=== PATIENT | male | born 1940 | race African-American/Black ===

== ENCOUNTER 2022-07-11 17:29 | Emergency (ER) | payer BC ==
[~2022-07-11] VITALS: Ht 182.9 cm; Wt 81.6 kg
[2022-07-11] MEDS ORDERED: ONDANSETRON 4 MG/2 ML VIAL IV ONE (18:00)
[2022-07-11] MEDS ORDERED: MORPHINE SULFATE 4 MG/1 ML DISP.SYRIN IV ONE (18:00)
[2022-07-11] MEDS ORDERED: ONDANSETRON 4 MG/2 ML VIAL ONE (18:02)
[2022-07-11] MEDS ORDERED: MORPHINE SULFATE 4 MG/1 ML DISP.SYRIN ONE (18:02)
[2022-07-11] MEDS ORDERED: ALPR0.255 PO (18:20)
[2022-07-11] MEDS ORDERED: SIMV10TA98 PO (18:20)
[2022-07-11] MEDS ORDERED: SITA50TA PO (18:20)
[2022-07-11] MEDS ORDERED: COLC0.6C3 PO (18:20)
[2022-07-11] MEDS ORDERED: TEMA30CA PO (18:20)
[2022-07-11] MEDS ORDERED: ALLO100T PO (18:20)
[2022-07-11] MEDS ORDERED: AMLO-212 PO (18:20)
[2022-07-11] MEDS ORDERED: NATE120T6 PO (18:20)
[2022-07-11] MEDS ORDERED: TRAM50TA2 PO (18:20)
[2022-07-11] MEDS ORDERED: APIX2.5T PO (18:20)
[2022-07-11] MEDS ORDERED: AZEL23SP BNOSTRILS (18:20)
[2022-07-11] MEDS ORDERED: HYDR-3976 PO (18:20)
[2022-07-11] MEDS ORDERED: CLON0.1T PO (18:20)
[2022-07-11] MEDS ORDERED: ALBU8.5H8 INH (18:20)
[2022-07-11] MEDS ORDERED: METO200T49 PO (18:20)
[2022-07-11] MEDS ORDERED: LOSA100T31 PO (18:20)
[2022-07-11] MEDS ORDERED: TAMS-3 PO (18:20)
[2022-07-11] MEDS ORDERED: FAMO20TA8 PO (18:20)
[2022-07-11] MEDS ORDERED: METF-440 PO (18:20)
--- NOTE | 2022-07-11 19:00 | NUR ---
Patient sitting in bed. NAD noted. at bedside.
[2022-07-11] MEDS ORDERED: KETOROLAC TROMETHAMINE 15 MG INJ IVP ONE (19:45)
[2022-07-11] MEDS ORDERED: KETOROLAC TROMETHAMINE 15 MG INJ ONE (19:46)
[2022-07-11] MEDS ORDERED: CYCL5TAB PO (20:57)
--- NOTE | 2022-07-11 21:34 | NUR ---
Patient discharged to home in stable condition. A/O x 3. NAD noted. All belongings with patient and family. Written and verbal after care instructions given. Patient verbalizes understanding of instructions. Stressed follow up or return to ER for worsening s/s.
[2022-07-11 21:36] VITALS: BP 150/91
== END 2022-07-11 21:36 | disposition home or self-care (01) ==
LOC: ER 17:29
DX: G89.29 Other chronic pain (principal); M54.41 Lumbago with sciatica, right side; J44.9 Chronic obstructive pulmonary disease, unspecified; I48.91 Unspecified atrial fibrillation; Z95.0 Presence of cardiac pacemaker; I11.0 Hypertensive heart disease with heart failure; I50.9 Heart failure, unspecified; E78.5 Hyperlipidemia, unspecified; N40.0 Benign prostatic hyperplasia without lower urinary tract symptoms; E11.9 Type 2 diabetes mellitus without complications
CPT/HCPCS: 99284; 96374; 96375; 73502; J1885; J2405; J2270; A4663

== ENCOUNTER 2022-07-19 13:11 | Emergency (ER) | payer BC ==
[~2022-07-19] VITALS: Ht 182.9 cm; Wt 81.6 kg
[~2022-07-19 13:11] MED LIST: ALBU8.5H8 INH; ALLO100T PO; ALPR0.255 PO; AMLO-212 PO; APIX2.5T PO; AZEL23SP BNOSTRILS; CLON0.1T PO; COLC0.6C3 PO; CYCL5TAB PO; FAMO20TA8 PO; HYDR-3976 PO; LOSA100T31 PO; METF-440 PO; METO200T49 PO; NATE120T6 PO; SIMV10TA98 PO; SITA50TA PO; TAMS-3 PO; TEMA30CA PO; TRAM50TA2 PO
--- NOTE | 2022-07-19 13:20 | NUR ---
Dr Kraft at the bedside for MSE.
[2022-07-19] MEDS ORDERED: ONDANSETRON ODT 4 MG TAB.RAPDIS SL ONE (13:30)
[2022-07-19] MEDS ORDERED: MORPHINE SULFATE 4 MG/1 ML DISP.SYRIN IM ONE (13:30)
[2022-07-19] MEDS ORDERED: ONDANSETRON ODT 4 MG TAB.RAPDIS ONE (13:31)
[2022-07-19] MEDS ORDERED: MORPHINE SULFATE 4 MG/1 ML DISP.SYRIN ONE (13:32)
[2022-07-19] MEDS ORDERED: GABA-532 PO (14:03)
[2022-07-19] MEDS ORDERED: SITA50TA PO (14:03)
[2022-07-19] MEDS ORDERED: HYDROMORPHONE 1 MG/1 ML DISP.SYRIN ONE (14:51)
[2022-07-19] MEDS ORDERED: HYDROMORPHONE 1 MG/1 ML DISP.SYRIN IM ONE (15:00)
--- NOTE | 2022-07-19 15:12 | NUR ---
A COPY OD CD OF IMAGES, WILL BE GIVEN TO THE PATIENT/FAMILY
--- NOTE | 2022-07-19 15:13 | NUR ---
Provided Pt with copy of CD that includes imaging. Pt currently in stable condition. Safety measures in place. Will continue to monitor.
--- NOTE | 2022-07-19 16:00 | NUR ---
Patient discharged to home in stable condition. Written and verbal after care instructions given. Patient verbalizes understanding of instructions. Gave Patient copies of CT scan as well as CD of CT. Patient left via wheelchair and left via [employer] in stable condition. Stressed follow up or return to ER for worsening s/s.
[2022-07-19 16:01] VITALS: BP 172/82
== END 2022-07-19 16:02 | disposition home or self-care (01) ==
LOC: ER 13:11
DX: G89.29 Other chronic pain (principal); M54.42 Lumbago with sciatica, left side; I11.0 Hypertensive heart disease with heart failure; I50.9 Heart failure, unspecified; I48.91 Unspecified atrial fibrillation; E78.5 Hyperlipidemia, unspecified; E11.9 Type 2 diabetes mellitus without complications; J44.9 Chronic obstructive pulmonary disease, unspecified; F17.210 Nicotine dependence, cigarettes, uncomplicated; Z95.0 Presence of cardiac pacemaker; Z88.8 Allergy status to other drugs, medicaments and biological substances; Z79.84 Long term (current) use of oral hypoglycemic drugs; Z79.899 Other long term (current) drug therapy
CPT/HCPCS: 99285; 72131; 72192; 96372 ×2; J1170; J2270; A4663; Q0162

== ENCOUNTER 2023-01-12 16:43 | Inpatient (IN) | payer BC ==
[~2023-01-12] VITALS: Ht 180.3 cm; Wt 93.0 kg
[~2023-01-12 16:43] MED LIST changes: -ALBU8.5H8 INH; -ALPR0.255 PO; +GABA-532 PO
[2023-01-12 17:21] LABS: BASOPHILS % (AUTO) 0.8 % (0.0-2.0); EOSINOPHILS % (AUTO) 0.8 % (0.0-7.0); HEMATOCRIT 37.8 % (36.7-47.1); HEMOGLOBIN 12.4 g/dL (12.5-16.3); LYMPHOCYTES # (AUTO) 1.2 K/uL (0.8-4.8); LYMPHOCYTES % (AUTO) 20.4 % (20.5-51.5); MEAN CORPUSCULAR HGB CONC 33 g/dL (32.5-36.3); MEAN CORPUSCULAR VOLUME 88.4 fL (73.0-96.2); MONOCYTES # (AUTO) 0.6 K/uL (0.1-1.30); MONOCYTES % (AUTO) 10.3 % (0.0-11.0); NEUTROPHILS # (AUTO) 3.9 K/uL (1.8-8.9); NEUTROPHILS % (AUTO) 67.7 % (38.5-71.5); PLATELET COUNT (AUTO) 147 K/uL (152-348); RED BLOOD CELL COUNT(AUTO) 4.28 MIL/uL (4.06-5.63); RED CELL DISTRIBUTION WIDTH 14.2 % (12.1-16.2); WHITE BLOOD COUNT (AUTO) 5.7 K/uL (3.6-10.2)
[2023-01-12] MEDS ORDERED: INSU100V37 SQ (17:23)
[2023-01-12] MEDS ORDERED: FOLI0.8T23 PO (17:23)
[2023-01-12] MEDS ORDERED: HYDR100T27 PO (17:23)
[2023-01-12] MEDS ORDERED: OZEMPIC SQ (17:23)
[2023-01-12] MEDS ORDERED: FINA5TAB11 PO (17:23)
[2023-01-12] MEDS ORDERED: INSU100C4 SQ (17:23)
[2023-01-12] MEDS ORDERED: FURO-151 PO (17:23)
[2023-01-12 17:36] LABS: DIFFERENTIAL COMMENT 1
[2023-01-12 17:51] LABS: CALCIUM 9.9 mg/dL (8.5-10.1); CARBON DIOXIDE 30 mmol/L (21-32); CHLORIDE 99 mmol/L (98-107); GLUCOSE 149 mg/dL (74-106); SODIUM SERUM 138 mmol/L (136-145); UREA NITROGEN, BLOOD 23 mg/dL (7-18)
[2023-01-12 18:04] LABS: ALANINE AMINOTRANSFERASE 76 U/L (16-63); ALBUMIN 2.9 g/dL (3.4-5.0); ALKALINE PHOSPHATASE 97 U/L (50-136); ASPARTATE AMINOTRANSFERASE 27 U/L (15-37); BILIRUBIN,DIRECT 0.1 mg/dL (0.0-0.2); BILIRUBIN,TOTAL 0.4 mg/dL (0.2-1.0); NT-PRO BNP 859 pg/mL (0-125); TOTAL PROTEIN, SERUM 7.3 g/dL (6.4-8.2)
[2023-01-12] MEDS ORDERED: CYCLOBENZAPRINE HCL PO SCH (18:45)
[2023-01-12] MEDS ORDERED: TRAMADOL HCL 50 MG TABLET PO PRN (18:45)
[2023-01-12] MEDS ORDERED: FAMOTIDINE 20 MG TABLET PO SCH (18:45)
[2023-01-12] MEDS ORDERED: INSULIN REGULAR, HUMAN 300 UNITS/3 ML VIAL SQ PRN (19:00)
[2023-01-12] MEDS ORDERED: ONDANSETRON 4 MG/2 ML VIAL IV PRN (19:00)
[2023-01-12] MEDS ORDERED: ACETAMINOPHEN 325 MG TABLET PO PRN (19:00)
[2023-01-12] MEDS ORDERED: DEXTROSE 50% 50 ML DISP.SYRIN IV PRN (19:00)
[2023-01-12] MEDS ORDERED: MAGNESIUM HYDROXIDE 30 ML LIQUID UDC PO PRN (19:00)
[2023-01-12] MEDS ORDERED: REMEDY ESSENTIAL ZINC PASTE 113 GM TP PRN (19:00)
[2023-01-12] MEDS ORDERED: CLONIDINE HCL 0.1 MG TABLET ONE (19:36)
[2023-01-12] MEDS ORDERED: CLONIDINE HCL 0.1 MG TABLET PO ONE (19:45)
[2023-01-12] MEDS: FUROSEMIDE 40 MG/4 ML VIAL IV SCH (22:35)
[2023-01-12] MEDS: TAMSULOSIN HCL 0.4 MG CAP.SR.24H PO SCH (22:36)
[2023-01-12] MEDS: BLOOD SUGAR DIAGNOSTIC 1 EACH STRIP VI SCH (22:36)
[2023-01-12] MEDS ORDERED: TEMAZEPAM 15 MG CAPSULE PO PRN (22:45)
[2023-01-13] MEDS: hydrALAZINE HCL 20 MG/1 ML VIAL IV PRN ×2 (00:42→07:19)
[2023-01-13 00:45] VITALS: BP 171/72; TEMP 98; O2SAT 96
[2023-01-13 04:00] VITALS: BP 165/78; TEMP 98.8; O2SAT 98
[2023-01-13 06:33] LABS: BASOPHILS % (AUTO) 0.6 % (0.0-2.0); EOSINOPHILS # (AUTO) 0.1 K/uL (0.0-0.7); EOSINOPHILS % (AUTO) 1.5 % (0.0-7.0); HEMATOCRIT 35.9 % (36.7-47.1); HEMOGLOBIN 11.7 g/dL (12.5-16.3); LYMPHOCYTES # (AUTO) 1.1 K/uL (0.8-4.8); LYMPHOCYTES % (AUTO) 22.4 % (20.5-51.5); MEAN CORPUSCULAR HEMOGLOBIN 28.8 uug (23.8-33.4); MEAN CORPUSCULAR HGB CONC 33 g/dL (32.5-36.3); MEAN CORPUSCULAR VOLUME 88.2 fL (73.0-96.2); MONOCYTES # (AUTO) 0.6 K/uL (0.1-1.30); MONOCYTES % (AUTO) 11.9 % (0.0-11.0); NEUTROPHILS # (AUTO) 3.1 K/uL (1.8-8.9); NEUTROPHILS % (AUTO) 63.6 % (38.5-71.5); PLATELET COUNT (AUTO) 148 K/uL (152-348); RED BLOOD CELL COUNT(AUTO) 4.07 MIL/uL (4.06-5.63); WHITE BLOOD COUNT (AUTO) 4.9 K/uL (3.6-10.2)
[2023-01-13 06:49] LABS: DIFFERENTIAL COMMENT 1
[2023-01-13 06:52] LABS: CALCIUM 9.4 mg/dL (8.5-10.1); CARBON DIOXIDE 31 mmol/L (21-32); CHLORIDE 100 mmol/L (98-107); CREATININE 2.1 mg/dL (0.6-1.3); GLUCOSE 146 mg/dL (74-106); MAGNESIUM 1.4 mg/dL (1.8-2.4); PHOSPHOROUS 3.9 mg/dL (2.5-4.9); POTASSIUM 3.8 mmol/L (3.5-5.1); SODIUM SERUM 138 mmol/L (136-145); UREA NITROGEN, BLOOD 28 mg/dL (7-18)
[2023-01-13] MEDS: BLOOD SUGAR DIAGNOSTIC 1 EACH STRIP VI SCH ×4 (06:58→20:21)
[2023-01-13 08:03] VITALS: BP 149/71
[2023-01-13] MEDS: INSULIN REGULAR, HUMAN 300 UNIT/3 ML VIAL SQ PRN ×2 (08:23→11:59)
[2023-01-13] MEDS: APIXABAN 2.5 MG TABLET PO SCH ×2 (08:36→17:21)
[2023-01-13] MEDS: FINASTERIDE 5 MG TABLET PO SCH (08:36)
[2023-01-13] MEDS: FUROSEMIDE 40 MG/4 ML VIAL IV SCH (08:37)
[2023-01-13] MEDS: GABAPENTIN 300 MG CAPSULE PO SCH ×3 (08:37→16:53)
[2023-01-13] MEDS: FAMOTIDINE 20 MG TABLET PO SCH (08:38)
[2023-01-13] MEDS: AMLODIPINE 5 MG TABLET PO SCH ×2 (08:39→16:54)
[2023-01-13] MEDS: METOPROLOL SUCCINATE XL 50 MG TAB.SR.24H PO SCH (08:39)
[2023-01-13] MEDS ORDERED: GABAPENTIN 100 MG CAPSULE PO SCH (09:00)
[2023-01-13] MEDS ORDERED: hydrALAZINE HCL 50 MG TABLET PO ONE (09:00)
[2023-01-13] MEDS ORDERED: ALLOPURINOL 100 MG TABLET PO SCH (09:00)
[2023-01-13] MEDS ORDERED: hydrALAZINE HCL 50 MG TABLET PO SCH ×2 (09:00)
[2023-01-13] MEDS ORDERED: CYCLOBENZAPRINE HCL 10 MG TABLET PO SCH (09:00)
[2023-01-13] MEDS ORDERED: COLCHICINE 0.6 MG TABLET PO SCH (09:00)
[2023-01-13] MEDS: MAGNESIUM SULFATE/D5W 100 ML IV SCH ×2 (10:44→11:54)
[2023-01-13 11:32] VITALS: BP 156/75; TEMP 98.2; O2SAT 98
[2023-01-13] MEDS ORDERED: ALBU8.5H8 IH (11:32)
[2023-01-13] MEDS ORDERED: ALBUTEROL SULFATE 2.5 MG/3 ML NEBU NEB PRN (11:45)
[2023-01-13] MEDS: hydrALAZINE HCL 50 MG TABLET PO SCH ×2 (12:02→16:54)
[2023-01-13 16:00] VITALS: BP 154/76; TEMP 98.6; O2SAT 97
[2023-01-13] MEDS: TAMSULOSIN HCL 0.4 MG CAP.SR.24H PO SCH (20:18)
[2023-01-13] MEDS ORDERED: TEMAZEPAM 15 MG CAPSULE PO SCH (21:00)
[2023-01-13 21:22] LABS: *BILIRUBIN,URIN NEGATIVE (NEGATIVE); *CLARITY,URINE CLEAR (CLEAR); *COLOR,URINE YELLOW (YELLOW); *KETONES,URINE NEGATIVE (NEGATIVE); *PROTEIN,URINE 2+ (NEGATIVE); *UROBILINOGEN,URINE 0.2 E.U./dl (NORMAL); LEUKOCYTE ESTERASE ,URINE NEGATIVE (NEGATIVE); NITRITE, URINE NEGATIVE (NEGATIVE); UGLUCOSE NEGATIVE (NEGATIVE)
[2023-01-13 21:25] VITALS: BP 142/64; TEMP 98.6; O2SAT 97
[2023-01-13 21:30] LABS: *BLOOD, URINE NEGATIVE (NEGATIVE)
[2023-01-13 21:35] LABS: *URINE TOTAL PROTEIN RANDOM 42.4 mg/dL (<150/24HR)
[2023-01-13 21:50] LABS: BACTERIA,URINE NONE SEEN /HPF (NONE SEEN); RBC,URINE 0-3 /HPF (0-3); SQUAMOUS EPITHELIAL CELL,UR NONE SEEN /HPF (NONE SEEN); WBC,URINE 0-3 /HPF (0-3)
[2023-01-14 06:05] VITALS: BP 146/84; TEMP 98.6
[2023-01-14] MEDS: BLOOD SUGAR DIAGNOSTIC 1 EACH STRIP VI SCH ×2 (06:46→12:10)
[2023-01-14 07:17] LABS: CALCIUM 8.6 mg/dL (8.5-10.1); CARBON DIOXIDE 33 mmol/L (21-32); CHLORIDE 101 mmol/L (98-107); CREATININE 2.3 mg/dL (0.6-1.3); GLUCOSE 101 mg/dL (74-106); MAGNESIUM 1.7 mg/dL (1.8-2.4); POTASSIUM 3.2 mmol/L (3.5-5.1); SODIUM SERUM 139 mmol/L (136-145); UREA NITROGEN, BLOOD 31 mg/dL (7-18)
[2023-01-14] MEDS ORDERED: MAGNESIUM OXIDE 400 MG TABLET PO ONE (08:15)
[2023-01-14] MEDS ORDERED: POTASSIUM CHLORIDE 10 MEQ TAB.PRT.SR PO ONE (08:15)
[2023-01-14] MEDS: FINASTERIDE 5 MG TABLET PO SCH (08:36)
[2023-01-14] MEDS: GABAPENTIN 300 MG CAPSULE PO SCH ×2 (08:36→12:14)
[2023-01-14] MEDS: FAMOTIDINE 20 MG TABLET PO SCH (08:36)
[2023-01-14] MEDS: AMLODIPINE 5 MG TABLET PO SCH (08:37)
[2023-01-14] MEDS: METOPROLOL SUCCINATE XL 50 MG TAB.SR.24H PO SCH (08:38)
[2023-01-14] MEDS: hydrALAZINE HCL 50 MG TABLET PO SCH ×2 (08:39→12:14)
[2023-01-14] MEDS: APIXABAN 2.5 MG TABLET PO SCH (08:51)
[2023-01-14] MEDS ORDERED: ALLOPURINOL 100 MG TABLET PO SCH (09:00)
[2023-01-14] MEDS ORDERED: FUROSEMIDE 40 MG/4 ML VIAL IV SCH (09:00)
[2023-01-14] MEDS ORDERED: FLUT16SP16 BNOSTRILS (09:56)
[2023-01-14 11:45] VITALS: BP 141/75; TEMP 98; O2SAT 99
[2023-01-14 12:14] VITALS: BP 140/97
[2023-01-14] MEDS: INSULIN REGULAR, HUMAN 300 UNIT/3 ML VIAL SQ PRN (12:19)
[2023-01-15 09:07] LABS: ALBUMIN 3.1 g/dL (2.9-4.4); ALPHA-1-GLOBULIN 0.3 g/dL (0.0-0.4); ALPHA-2-GLOBULIN 0.8 g/dL (0.4-1.0); GAMMA GLOBULIN 0.9 g/dL (0.4-1.8); GLOBULIN, TOTAL 3.1 g/dL (2.2-3.9); M-SPIKE 0.5 g/dL (Not Observed)
[2023-01-16 06:07] LABS: *PEU ALBUMIN, UR 72.4 % (.); *PEU ALPHA-2-GLOBULIN, UR 4.5 % (.); *PEU GAMMA GLOBULIN, UR 6.8 % (.); *PEU PROTEIN, TOTAL, UR 38.9 mg/dL (Not Estab.); *PEUALPHA-1-GLOBULIN, UR 6.4 % (.); *PEUBETA GLOBULIN, UR 9.9 % (.)
== END 2023-01-14 14:30 | disposition home health service (06) | DRG 291 ==
LOC: ER 16:49 → TELE3 21:20
PROVIDERS: ADMIT Internal Medicine; ATTEND Internal Medicine
DX: I13.0 Hypertensive heart and chronic kidney disease with heart failure and stage 1 through stage 4 chronic kidney disease, or unspecified chronic kidney disease (principal); I50.33 Acute on chronic diastolic (congestive) heart failure; E44.0 Moderate protein-calorie malnutrition; N17.9 Acute kidney failure, unspecified; I16.0 Hypertensive urgency; I48.0 Paroxysmal atrial fibrillation; R60.0 Localized edema; Z68.28 Body mass index [BMI] 28.0-28.9, adult; E83.42 Hypomagnesemia; E78.5 Hyperlipidemia, unspecified; J44.9 Chronic obstructive pulmonary disease, unspecified; N40.0 Benign prostatic hyperplasia without lower urinary tract symptoms; M89.8X9 Other specified disorders of bone, unspecified site; D64.9 Anemia, unspecified; E87.6 Hypokalemia; E88.09 Other disorders of plasma-protein metabolism, not elsewhere classified; T46.1X5A Adverse effect of calcium-channel blockers, initial encounter; Y92.89 Other specified places as the place of occurrence of the external cause; R09.81 Nasal congestion; E11.22 Type 2 diabetes mellitus with diabetic chronic kidney disease; N18.9 Chronic kidney disease, unspecified; Z87.891 Personal history of nicotine dependence; Z79.01 Long term (current) use of anticoagulants; Z95.0 Presence of cardiac pacemaker; Z79.899 Other long term (current) drug therapy; Z79.84 Long term (current) use of oral hypoglycemic drugs; Z87.828 Personal history of other (healed) physical injury and trauma; Z90.5 Acquired absence of kidney
CPT/HCPCS: 36415; 71045; 71270; 83735; 84100; 84155; 84165; 84166; 84300; 84484; 85025; 85730; 93005; 93307; A4663; G0378; J0360; J1815; J1940; J3475; J8499

== ENCOUNTER 2023-09-25 21:14 | Inpatient (IN) | payer BC ==
[~2023-09-25] VITALS: Ht 177.8 cm; Wt 92.5 kg
[~2023-09-25 21:14] MED LIST changes: +ALBU8.5H8 IH; -AMLO-212 PO; -CLON0.1T PO; -CYCL5TAB PO; +FINA5TAB11 PO; +FLUT16SP16 BNOSTRILS; +FOLI0.8T23 PO; +FURO-151 PO; -HYDR-3976 PO; +HYDR100T27 PO; +INSU100C4 SQ; +INSU100V37 SQ; -LOSA100T31 PO; -METF-440 PO; -NATE120T6 PO; +OZEMPIC SQ; -SITA50TA PO
[2023-09-25 22:03] LABS: CALCIUM 9.2 mg/dL (8.5-10.1); CARBON DIOXIDE 30 mmol/L (21-32); CHLORIDE 93 mmol/L (98-107); CREATININE 2.8 mg/dL (0.6-1.3); GLUCOSE 177 mg/dL (74-106); POTASSIUM 2.9 mmol/L (3.5-5.1); SODIUM SERUM 131 mmol/L (136-145); UREA NITROGEN, BLOOD 46 mg/dL (7-18)
[2023-09-25 22:07] LABS: BASOPHILS % (AUTO) 0.4 % (0.0-2.0); DIFFERENTIAL COMMENT 0; EOSINOPHILS % (AUTO) 0.3 % (0.0-7.0); HEMATOCRIT 35.7 % (36.7-47.1); HEMOGLOBIN 11.4 g/dL (12.5-16.3); LYMPHOCYTES # (AUTO) 1.5 K/uL (0.8-4.8); MEAN CORPUSCULAR HEMOGLOBIN 27.6 uug (23.8-33.4); MEAN CORPUSCULAR HGB CONC 32 g/dL (32.5-36.3); MEAN CORPUSCULAR VOLUME 86.2 fL (73.0-96.2); MONOCYTES # (AUTO) 0.9 K/uL (0.1-1.30); NEUTROPHILS # (AUTO) 6.1 K/uL (1.8-8.9); NEUTROPHILS % (AUTO) 71.3 % (38.5-71.5); PLATELET COUNT (AUTO) 189 K/uL (152-348); RED BLOOD CELL COUNT(AUTO) 4.14 MIL/uL (4.06-5.63); RED CELL DISTRIBUTION WIDTH 17.4 % (12.1-16.2); WHITE BLOOD COUNT (AUTO) 8.6 K/uL (3.6-10.2)
[2023-09-25 22:09] LABS: ALANINE AMINOTRANSFERASE 28 U/L (16-63); ALBUMIN 3.1 g/dL (3.4-5.0); ALKALINE PHOSPHATASE 98 U/L (50-136); ASPARTATE AMINOTRANSFERASE 21 U/L (15-37); BILIRUBIN,TOTAL 0.7 mg/dL (0.2-1.0); LIPASE 65 U/L (16-77); TOTAL PROTEIN, SERUM 7.5 g/dL (6.4-8.2)
[2023-09-25 22:23] LABS: LACTIC ACID 2.1 mmol/L (0.4-2.0)
[2023-09-25] MEDS ORDERED: POTASSIUM CHLORIDE 100 ML ONE (22:28)
[2023-09-25] MEDS: POTASSIUM CHLORIDE 50 ML IV SCH (22:34)
[2023-09-25] MEDS ORDERED: MORPHINE SULFATE 2 MG/1 ML DISP.SYRIN ONE (22:59)
[2023-09-25] MEDS: IV NS 1000 ML 1,000 ML IV ONE (23:00)
[2023-09-25] MEDS: MORPHINE SULFATE 2 MG/1 ML DISP.SYRIN IV ONE (23:11)
[2023-09-26] MEDS ORDERED: ONDANSETRON 4 MG/2 ML VIAL ONE (00:07)
[2023-09-26] MEDS ORDERED: MORPHINE SULFATE 4 MG/1 ML DISP.SYRIN ONE (00:08)
[2023-09-26] MEDS: MORPHINE SULFATE 4 MG/1 ML DISP.SYRIN IV ONE (00:16)
[2023-09-26] MEDS: ONDANSETRON 4 MG/2 ML VIAL IV ONE (00:16)
[2023-09-26 03:01] LABS: *BILIRUBIN,URIN NEGATIVE (NEGATIVE); *BLOOD, URINE NEGATIVE (NEGATIVE); *CLARITY,URINE CLEAR (CLEAR); *COLOR,URINE YELLOW (YELLOW); *KETONES,URINE NEGATIVE (NEGATIVE); *UROBILINOGEN,URINE 0.2 E.U./dl (NORMAL); LEUKOCYTE ESTERASE ,URINE NEGATIVE (NEGATIVE); NITRITE, URINE NEGATIVE (NEGATIVE); UGLUCOSE NEGATIVE (NEGATIVE)
[2023-09-26 03:06] LABS: *PROTEIN,URINE 3+ (NEGATIVE)
[2023-09-26] MEDS ORDERED: SEMA0.25 SQ (03:18)
[2023-09-26] MEDS ORDERED: BISA10SU61 RC (03:18)
[2023-09-26] MEDS ORDERED: POLY250017 PO (03:18)
[2023-09-26] MEDS ORDERED: MAGN400C PO (03:18)
[2023-09-26] MEDS ORDERED: INSU100V36 SQ (03:18)
[2023-09-26] MEDS ORDERED: LABE200T5 PO (03:18)
[2023-09-26] MEDS ORDERED: VIT1TABL46 PO (03:18)
[2023-09-26] MEDS ORDERED: EVOL140P3 SQ (03:18)
[2023-09-26] MEDS ORDERED: METO2.5T2 PO (03:18)
[2023-09-26] MEDS ORDERED: BUME1TAB8 PO (03:18)
[2023-09-26] MEDS ORDERED: SENN8.6T19 PO (03:18)
[2023-09-26] MEDS ORDERED: INSU100I24 SQ (03:18)
[2023-09-26] MEDS ORDERED: ONDANSETRON 4 MG/2 ML VIAL IV PRN (04:00)
[2023-09-26] MEDS ORDERED: ACETAMINOPHEN 325 MG TABLET PO PRN (04:00)
[2023-09-26] MEDS ORDERED: REMEDY ESSENTIAL ZINC PASTE 113 GM TP PRN (04:00)
[2023-09-26] MEDS: IV NS 1000 ML 1,000 ML IV PRN (05:41)
[2023-09-26 06:03] VITALS: BP 155/83; TEMP 98.1; O2SAT 97
[2023-09-26 06:42] LABS: BASOPHILS % (AUTO) 0.7 % (0.0-2.0); EOSINOPHILS % (AUTO) 0.6 % (0.0-7.0); HEMATOCRIT 34.9 % (36.7-47.1); HEMOGLOBIN 11.2 g/dL (12.5-16.3); LYMPHOCYTES # (AUTO) 1.7 K/uL (0.8-4.8); LYMPHOCYTES % (AUTO) 22.9 % (20.5-51.5); MEAN CORPUSCULAR HEMOGLOBIN 27.7 uug (23.8-33.4); MEAN CORPUSCULAR HGB CONC 32 g/dL (32.5-36.3); MEAN CORPUSCULAR VOLUME 86.2 fL (73.0-96.2); MONOCYTES # (AUTO) 1.1 K/uL (0.1-1.30); MONOCYTES % (AUTO) 14.3 % (0.0-11.0); NEUTROPHILS # (AUTO) 4.5 K/uL (1.8-8.9); NEUTROPHILS % (AUTO) 61.5 % (38.5-71.5); PLATELET COUNT (AUTO) 180 K/uL (152-348); RED BLOOD CELL COUNT(AUTO) 4.05 MIL/uL (4.06-5.63); RED CELL DISTRIBUTION WIDTH 17.3 % (12.1-16.2); WHITE BLOOD COUNT (AUTO) 7.4 K/uL (3.6-10.2)
[2023-09-26 06:48] LABS: DIFFERENTIAL COMMENT 1
[2023-09-26 06:56] LABS: ALANINE AMINOTRANSFERASE 24 U/L (16-63); ALKALINE PHOSPHATASE 91 U/L (50-136); ASPARTATE AMINOTRANSFERASE 17 U/L (15-37); BILIRUBIN,DIRECT 0.2 mg/dL (0.0-0.2); BILIRUBIN,TOTAL 0.5 mg/dL (0.2-1.0); CALCIUM 9.1 mg/dL (8.5-10.1); CARBON DIOXIDE 31 mmol/L (21-32); CHLORIDE 98 mmol/L (98-107); CREATININE 2.7 mg/dL (0.6-1.3); GLUCOSE 144 mg/dL (74-106); MAGNESIUM 2.4 mg/dL (1.8-2.4); PHOSPHOROUS 3.2 mg/dL (2.5-4.9); POTASSIUM 3.6 mmol/L (3.5-5.1); SODIUM SERUM 135 mmol/L (136-145); TOTAL PROTEIN, SERUM 7.3 g/dL (6.4-8.2); UREA NITROGEN, BLOOD 44 mg/dL (7-18)
[2023-09-26 07:10] LABS: THYROID STIMULATING HORMONE 1.699 mIU/mL (0.358-3.740)
[2023-09-26 08:00] VITALS: BP 161/68; TEMP 98.6; O2SAT 96
[2023-09-26] MEDS: PANTOPRAZOLE SODIUM 40 MG VIAL IV SCH (08:49)
[2023-09-26] MEDS ORDERED: BISACODYL 10 MG SUPP.RECT RC PRN (09:00)
[2023-09-26] MEDS ORDERED: ENOXAPARIN SODIUM 30 MG/0.3 ML DISP.SYRIN SQ SCH ×2 (09:00)
[2023-09-26] MEDS ORDERED: FAMOTIDINE 20 MG TABLET PO SCH (09:00)
[2023-09-26] MEDS ORDERED: DEXTROSE 50% 50 ML DISP.SYRIN IV PRN (09:00)
[2023-09-26] MEDS: BLOOD SUGAR DIAGNOSTIC 1 EACH STRIP VI SCH (09:00)
[2023-09-26] MEDS: FINASTERIDE 5 MG TABLET PO SCH (10:40)
[2023-09-26] MEDS: BUMETANIDE 1 MG TABLET PO SCH (10:40)
[2023-09-26] MEDS: ALLOPURINOL 100 MG TABLET PO SCH (10:40)
[2023-09-26] MEDS: APIXABAN 2.5 MG TABLET PO SCH (10:41)
[2023-09-26] MEDS: LABETALOL HCL 200 MG TABLET PO SCH (10:46)
[2023-09-26 11:48] VITALS: BP 142/58; TEMP 97.6; O2SAT 97
[2023-09-26] MEDS: INSULIN REGULAR, HUMAN 300 UNIT/3 ML VIAL SQ PRN (13:20)
[2023-09-26 16:02] VITALS: BP 165/80; TEMP 98.2; O2SAT 97
[2023-09-26 19:30] VITALS: BP 138/66; TEMP 97.2; O2SAT 96
[2023-09-26] MEDS: MELATONIN 3 MG TABLET PO SCH (20:20)
[2023-09-26] MEDS: TAMSULOSIN HCL 0.4 MG CAP.SR.24H PO SCH (20:20)
[2023-09-27] MEDS: ZOLPIDEM 5 MG TABLET PO PRN (01:54)
[2023-09-27 05:23] VITALS: BP 131/65; TEMP 98.7; O2SAT 96
[2023-09-27 09:14] LABS: BASOPHILS # (AUTO) 0.1 K/UL (0.0-0.2); BASOPHILS % (AUTO) 0.7 % (0.0-2.0); EOSINOPHILS # (AUTO) 0.2 K/uL (0.0-0.7); EOSINOPHILS % (AUTO) 2.2 % (0.0-7.0); HEMATOCRIT 33.5 % (36.7-47.1); HEMOGLOBIN 10.6 g/dL (12.5-16.3); LYMPHOCYTES # (AUTO) 1.8 K/uL (0.8-4.8); LYMPHOCYTES % (AUTO) 24.1 % (20.5-51.5); MEAN CORPUSCULAR HEMOGLOBIN 27.5 uug (23.8-33.4); MEAN CORPUSCULAR HGB CONC 32 g/dL (32.5-36.3); MEAN CORPUSCULAR VOLUME 86.7 fL (73.0-96.2); MONOCYTES % (AUTO) 13.1 % (0.0-11.0); NEUTROPHILS # (AUTO) 4.4 K/uL (1.8-8.9); NEUTROPHILS % (AUTO) 59.9 % (38.5-71.5); PLATELET COUNT (AUTO) 194 K/uL (152-348); RED BLOOD CELL COUNT(AUTO) 3.86 MIL/uL (4.06-5.63); WHITE BLOOD COUNT (AUTO) 7.3 K/uL (3.6-10.2)
[2023-09-27 11:01] LABS: DIFFERENTIAL COMMENT 1
[2023-09-27 11:15] LABS: CALCIUM 8.8 mg/dL (8.5-10.1); CARBON DIOXIDE 29 mmol/L (21-32); CHLORIDE 101 mmol/L (98-107); GLUCOSE 144 mg/dL (74-106); POTASSIUM 3.3 mmol/L (3.5-5.1); SODIUM SERUM 140 mmol/L (136-145)
[2023-09-27 11:16] LABS: CREATININE 2.7 mg/dL (0.6-1.3); UREA NITROGEN, BLOOD 40 mg/dL (7-18)
[2023-09-27 12:00] VITALS: BP 126/55; TEMP 98.5; O2SAT 98
[2023-09-27] MEDS: BLOOD SUGAR DIAGNOSTIC 1 EACH STRIP VI SCH (12:23)
[2023-09-27 16:53] VITALS: BP 158/76; TEMP 99.2; O2SAT 97
[2023-09-27] MEDS: POTASSIUM CHLORIDE 20 MEQ TAB.PRT.SR PO ONE (18:03)
[2023-09-27 20:15] VITALS: BP 130/64; TEMP 98.7; O2SAT 99
[2023-09-28 04:10] VITALS: BP 137/62; TEMP 98.6; O2SAT 98
[2023-09-28] MEDS: PANTOPRAZOLE SODIUM 40 MG TABLET.DR PO SCH (06:17)
[2023-09-28 07:11] LABS: *BILIRUBIN,URIN NEGATIVE (NEGATIVE); *BLOOD, URINE NEGATIVE (NEGATIVE); *CLARITY,URINE CLEAR (CLEAR); *COLOR,URINE LIGHT YELLOW (YELLOW); *KETONES,URINE NEGATIVE (NEGATIVE); *PROTEIN,URINE 2+ (NEGATIVE); *UROBILINOGEN,URINE 0.2 E.U./dl (NORMAL); LEUKOCYTE ESTERASE ,URINE NEGATIVE (NEGATIVE); NITRITE, URINE NEGATIVE (NEGATIVE); PH,URINE 6.5 (5.0-8.0); UGLUCOSE NEGATIVE (NEGATIVE)
[2023-09-28 07:17] LABS: BASOPHILS # (AUTO) 0.1 K/UL (0.0-0.2); BASOPHILS % (AUTO) 0.9 % (0.0-2.0); EOSINOPHILS # (AUTO) 0.1 K/uL (0.0-0.7); EOSINOPHILS % (AUTO) 2.3 % (0.0-7.0); HEMATOCRIT 31.9 % (36.7-47.1); HEMOGLOBIN 10.2 g/dL (12.5-16.3); LYMPHOCYTES # (AUTO) 1.8 K/uL (0.8-4.8); LYMPHOCYTES % (AUTO) 28.7 % (20.5-51.5); MEAN CORPUSCULAR HEMOGLOBIN 27.4 uug (23.8-33.4); MEAN CORPUSCULAR HGB CONC 32 g/dL (32.5-36.3); MEAN CORPUSCULAR VOLUME 85.8 fL (73.0-96.2); MONOCYTES # (AUTO) 0.8 K/uL (0.1-1.30); MONOCYTES % (AUTO) 12.6 % (0.0-11.0); NEUTROPHILS # (AUTO) 3.4 K/uL (1.8-8.9); NEUTROPHILS % (AUTO) 55.5 % (38.5-71.5); PLATELET COUNT (AUTO) 180 K/uL (152-348); RED BLOOD CELL COUNT(AUTO) 3.72 MIL/uL (4.06-5.63); RED CELL DISTRIBUTION WIDTH 16.9 % (12.1-16.2); WHITE BLOOD COUNT (AUTO) 6.2 K/uL (3.6-10.2)
[2023-09-28 07:22] LABS: *CREATININE,URINE 45.7 mg/dL (30-125); *URINE TOTAL PROTEIN RANDOM 119.2 mg/dL (<150/24HR)
[2023-09-28 07:22] LABS: DIFFERENTIAL COMMENT 1
[2023-09-28 07:35] LABS: CARBON DIOXIDE 30 mmol/L (21-32); CHLORIDE 101 mmol/L (98-107); CREATININE 2.6 mg/dL (0.6-1.3); GLUCOSE 165 mg/dL (74-106); POTASSIUM 3.1 mmol/L (3.5-5.1); SODIUM SERUM 139 mmol/L (136-145); UREA NITROGEN, BLOOD 40 mg/dL (7-18)
[2023-09-28 07:45] LABS: BACTERIA,URINE NONE SEEN /HPF (NONE SEEN); RBC,URINE NONE SEEN /HPF (0-3); SQUAMOUS EPITHELIAL CELL,UR FEW /HPF (NONE SEEN); WBC,URINE 0-3 /HPF (0-3)
[2023-09-28] MEDS: MAGNESIUM HYDROXIDE 30 ML LIQUID UDC PO PRN (10:35)
[2023-09-28] MEDS: POTASSIUM CHLORIDE 20 MEQ POWDER PACKET PO ONE (10:35)
[2023-09-28 12:00] VITALS: BP 123/69; TEMP 99.4; O2SAT 96
[2023-09-28 12:36] VITALS: BP 123/69
[2023-09-28 14:53] LABS: BASOPHILS % (AUTO) 0.6 % (0.0-2.0); EOSINOPHILS # (AUTO) 0.1 K/uL (0.0-0.7); EOSINOPHILS % (AUTO) 1.3 % (0.0-7.0); HEMATOCRIT 33.8 % (36.7-47.1); LYMPHOCYTES # (AUTO) 1.5 K/uL (0.8-4.8); LYMPHOCYTES % (AUTO) 22.4 % (20.5-51.5); MEAN CORPUSCULAR HEMOGLOBIN 28.2 uug (23.8-33.4); MEAN CORPUSCULAR HGB CONC 33 g/dL (32.5-36.3); MEAN CORPUSCULAR VOLUME 86.9 fL (73.0-96.2); MONOCYTES # (AUTO) 0.6 K/uL (0.1-1.30); MONOCYTES % (AUTO) 8.9 % (0.0-11.0); NEUTROPHILS # (AUTO) 4.6 K/uL (1.8-8.9); NEUTROPHILS % (AUTO) 66.8 % (38.5-71.5); PLATELET COUNT (AUTO) 183 K/uL (152-348); RED BLOOD CELL COUNT(AUTO) 3.89 MIL/uL (4.06-5.63); RED CELL DISTRIBUTION WIDTH 17.1 % (12.1-16.2); WHITE BLOOD COUNT (AUTO) 6.8 K/uL (3.6-10.2)
[2023-09-28 14:54] LABS: DIFFERENTIAL COMMENT 1
[2023-09-28] MEDS ORDERED: MELATONIN 3 MG TABLET PO SCH (21:00)
== END 2023-09-28 14:30 | disposition home or self-care (01) | DRG 391 ==
LOC: ER 21:18 → MEDSURG3 09-26 04:08
PROVIDERS: ADMIT Nurse Practitioner Family; ATTEND Internal Medicine
DX: A08.4 Viral intestinal infection, unspecified (principal); E43 Unspecified severe protein-calorie malnutrition; N17.0 Acute kidney failure with tubular necrosis; I13.0 Hypertensive heart and chronic kidney disease with heart failure and stage 1 through stage 4 chronic kidney disease, or unspecified chronic kidney disease; I50.30 Unspecified diastolic (congestive) heart failure; E88.09 Other disorders of plasma-protein metabolism, not elsewhere classified; Z68.29 Body mass index [BMI] 29.0-29.9, adult; Z90.5 Acquired absence of kidney; Z87.442 Personal history of urinary calculi; Z87.440 Personal history of urinary (tract) infections; D63.1 Anemia in chronic kidney disease; I48.91 Unspecified atrial fibrillation; Z79.02 Long term (current) use of antithrombotics/antiplatelets; E78.5 Hyperlipidemia, unspecified; R26.89 Other abnormalities of gait and mobility; R29.6 Repeated falls; N40.0 Benign prostatic hyperplasia without lower urinary tract symptoms; I71.43 Infrarenal abdominal aortic aneurysm, without rupture; E11.22 Type 2 diabetes mellitus with diabetic chronic kidney disease; N18.9 Chronic kidney disease, unspecified; Z79.4 Long term (current) use of insulin; Z79.899 Other long term (current) drug therapy; Z95.0 Presence of cardiac pacemaker; M15.9 Polyosteoarthritis, unspecified; Z79.01 Long term (current) use of anticoagulants; J44.9 Chronic obstructive pulmonary disease, unspecified
CPT/HCPCS: 36415; 83605; 83690; 83735; 84100; 84300; 84443; 85025; 87040; A4606; A4663; C9113; G0378; J1815; J2270; J2405; J3480; J7040; J8499

== ENCOUNTER 2023-10-27 14:05 | Inpatient (IN) | payer BC ==
[~2023-10-27] VITALS: Ht 177.8 cm; Wt 91.2 kg
[~2023-10-27 14:05] MED LIST changes: -AZEL23SP BNOSTRILS; +BISA10SU61 RC; +BUME1TAB8 PO; +EVOL140P3 SQ; -FLUT16SP16 BNOSTRILS; -FOLI0.8T23 PO; -FURO-151 PO; -GABA-532 PO; -INSU100C4 SQ; +INSU100I24 SQ; +INSU100V36 SQ; -INSU100V37 SQ; +LABE200T5 PO; +MAGN400C PO; +METO2.5T2 PO; -METO200T49 PO; -OZEMPIC SQ; +POLY250017 PO; +SEMA0.25 SQ; +SENN8.6T19 PO; -SIMV10TA98 PO; -TEMA30CA PO; -TRAM50TA2 PO; +VIT1TABL46 PO
[2023-10-27 14:51] LABS: BASOPHILS % (AUTO) 0.5 % (0.0-2.0); EOSINOPHILS # (AUTO) 0.9 K/uL (0.0-0.7); EOSINOPHILS % (AUTO) 15.2 % (0.0-7.0); HEMATOCRIT 34.8 % (36.7-47.1); HEMOGLOBIN 10.6 g/dL (12.5-16.3); LYMPHOCYTES # (AUTO) 0.9 K/uL (0.8-4.8); LYMPHOCYTES % (AUTO) 15.2 % (20.5-51.5); MEAN CORPUSCULAR HEMOGLOBIN 27.1 uug (23.8-33.4); MEAN CORPUSCULAR HGB CONC 31 g/dL (32.5-36.3); MEAN CORPUSCULAR VOLUME 88.8 fL (73.0-96.2); MONOCYTES # (AUTO) 0.1 K/uL (0.1-1.30); MONOCYTES % (AUTO) 2.5 % (0.0-11.0); NEUTROPHILS # (AUTO) 3.9 K/uL (1.8-8.9); NEUTROPHILS % (AUTO) 66.6 % (38.5-71.5); PLATELET COUNT (AUTO) 183 K/uL (152-348); RED BLOOD CELL COUNT(AUTO) 3.92 MIL/uL (4.06-5.63); RED CELL DISTRIBUTION WIDTH 17.2 % (12.1-16.2); WHITE BLOOD COUNT (AUTO) 5.8 K/uL (3.6-10.2)
[2023-10-27 15:04] LABS: DIFFERENTIAL COMMENT 1
[2023-10-27 15:10] LABS: CARBON DIOXIDE 26 mmol/L (21-32); CHLORIDE 99 mmol/L (98-107); CREATININE 2.7 mg/dL (0.6-1.3); GLUCOSE 123 mg/dL (74-106); POTASSIUM 4.5 mmol/L (3.5-5.1); SODIUM SERUM 134 mmol/L (136-145); UREA NITROGEN, BLOOD 23 mg/dL (7-18)
[2023-10-27 15:23] LABS: ALANINE AMINOTRANSFERASE 32 U/L (16-63); ALBUMIN 3.2 g/dL (3.4-5.0); ALKALINE PHOSPHATASE 84 U/L (50-136); ASPARTATE AMINOTRANSFERASE 13 U/L (15-37); BILIRUBIN,DIRECT 0.2 mg/dL (0.0-0.2); BILIRUBIN,TOTAL 0.4 mg/dL (0.2-1.0); NT-PRO BNP 889 pg/mL (0-125); TOTAL PROTEIN, SERUM 6.7 g/dL (6.4-8.2)
[2023-10-27] MEDS ORDERED: ONDANSETRON 4 MG/2 ML VIAL ONE ×2 (16:15→16:16)
[2023-10-27] MEDS ORDERED: MORPHINE SULFATE 4 MG/1 ML DISP.SYRIN ONE (16:16)
[2023-10-27] MEDS: ONDANSETRON 4 MG/2 ML VIAL IV ONE (16:30)
[2023-10-27] MEDS: MORPHINE SULFATE 4 MG/1 ML DISP.SYRIN IV ONE (16:30)
[2023-10-27] MEDS ORDERED: SENNOSIDES 1 TABLET PO PRN (17:45)
[2023-10-27] MEDS ORDERED: BISACODYL 10 MG SUPP.RECT RC PRN (17:45)
[2023-10-27] MEDS ORDERED: MAGNESIUM HYDROXIDE 30 ML LIQUID UDC PO PRN (18:00)
[2023-10-27] MEDS ORDERED: HYDROMORPHONE 1 MG/1 ML DISP.SYRIN IV PRN (18:00)
[2023-10-27] MEDS ORDERED: REMEDY ESSENTIAL ZINC PASTE 113 GM TP PRN (18:00)
[2023-10-27] MEDS ORDERED: ONDANSETRON 4 MG/2 ML VIAL IV PRN (18:00)
[2023-10-27 18:08] LABS: *BILIRUBIN,URIN NEGATIVE (NEGATIVE); *CLARITY,URINE CLEAR (CLEAR); *COLOR,URINE YELLOW (YELLOW); *KETONES,URINE NEGATIVE (NEGATIVE); *PROTEIN,URINE 2+ (NEGATIVE); *UROBILINOGEN,URINE 0.2 E.U./dl (NORMAL); LEUKOCYTE ESTERASE ,URINE NEGATIVE (NEGATIVE); NITRITE, URINE POSITIVE (NEGATIVE); PH,URINE 6.5 (5.0-8.0); UGLUCOSE TRACE (NEGATIVE)
[2023-10-27 18:10] LABS: *BLOOD, URINE TRACE (NEGATIVE)
[2023-10-27] MEDS ORDERED: CEFEPIME HCL 1 G VIAL ONE (18:12)
[2023-10-27] MEDS: CEFEPIME HCL 2 G in IV DEXTROSE 5% 100 ML IV ONE (18:16)
[2023-10-27] MEDS: HYDROMORPHONE 1 MG/1 ML DISP.SYRIN IV ONE (18:17)
[2023-10-27 18:50] LABS: BACTERIA,URINE NONE SEEN /HPF (NONE SEEN); SQUAMOUS EPITHELIAL CELL,UR FEW /HPF (NONE SEEN); WBC,URINE NONE SEEN /HPF (0-3)
[2023-10-27] MEDS ORDERED: hydrALAZINE HCL 20 MG/1 ML VIAL IV PRN (20:00)
[2023-10-27] MEDS ORDERED: LORAZEPAM 0.5 MG TABLET PO PRN (20:45)
[2023-10-27] MEDS ORDERED: TAMSULOSIN HCL 0.4 MG CAP.SR.24H PO SCH (21:00)
[2023-10-27] MEDS: LORAZEPAM 0.5 MG TABLET PO PRN (21:03)
[2023-10-27] MEDS ORDERED: ACETAMINOPHEN 325 MG TABLET ONE (21:08)
[2023-10-27] MEDS: ACETAMINOPHEN 325 MG TABLET PO PRN (21:09)
[2023-10-27] MEDS ORDERED: BUMETANIDE 1 MG TABLET ONE (21:11)
[2023-10-27 21:50] VITALS: O2SAT 98
[2023-10-28] MEDS ORDERED: FAMOTIDINE 20 MG TABLET PO SCH (09:00)
[2023-10-28] MEDS ORDERED: METOLAZONE 2.5 MG TABLET PO SCH (09:00)
[2023-10-28] MEDS ORDERED: FINASTERIDE 5 MG TABLET PO SCH (09:00)
[2023-10-28] MEDS ORDERED: MAGNESIUM OXIDE 400 MG TABLET PO SCH (09:00)
[2023-10-28] MEDS ORDERED: hydrALAZINE HCL 25 MG TABLET PO SCH (09:00)
[2023-10-28] MEDS ORDERED: LABETALOL HCL 200 MG TABLET PO SCH (09:00)
[2023-10-28] MEDS ORDERED: APIXABAN 2.5 MG TABLET PO SCH (09:00)
[2023-10-28] MEDS ORDERED: BUMETANIDE 1 MG TABLET PO SCH (09:00)
== END 2023-10-27 22:30 | disposition left against medical advice (07) | DRG 305 ==
LOC: ER 14:06 → MEDSURG3 21:23
PROVIDERS: ADMIT Internal Medicine; ATTEND Internal Medicine
DX: I16.0 Hypertensive urgency (principal); N39.0 Urinary tract infection, site not specified; I25.119 Atherosclerotic heart disease of native coronary artery with unspecified angina pectoris; N40.1 Benign prostatic hyperplasia with lower urinary tract symptoms; R33.8 Other retention of urine; Z53.29 Procedure and treatment not carried out because of patient's decision for other reasons; Z90.5 Acquired absence of kidney; E78.5 Hyperlipidemia, unspecified; I48.91 Unspecified atrial fibrillation; Z95.0 Presence of cardiac pacemaker; E11.9 Type 2 diabetes mellitus without complications; J44.9 Chronic obstructive pulmonary disease, unspecified; K57.30 Diverticulosis of large intestine without perforation or abscess without bleeding; I11.0 Hypertensive heart disease with heart failure; I50.9 Heart failure, unspecified; Z79.899 Other long term (current) drug therapy; Z79.4 Long term (current) use of insulin; Z79.01 Long term (current) use of anticoagulants; M51.36 Other intervertebral disc degeneration, lumbar region; Z88.8 Allergy status to other drugs, medicaments and biological substances; M10.9 Gout, unspecified
CPT/HCPCS: 36415; 71045; 74150; 83605; 84484; 85025; 85730; 87040; 93005; A4663; G0378; J0692; J1170; J2270; J2405

== ENCOUNTER 2024-07-08 09:07 | Inpatient (IN) | payer BC ==
[~2024-07-08] VITALS: Ht 177.8 cm; Wt 102.5 kg
[2024-07-08] MEDS ORDERED: diphenhydrAMINE 50 MG/1 ML VIAL ONE (10:16)
[2024-07-08 10:17] LABS: BASOPHILS % (AUTO) 0.9 % (0.0-2.0); EOSINOPHILS # (AUTO) 0.1 K/uL (0.0-0.7); EOSINOPHILS % (AUTO) 2.3 % (0.0-7.0); HEMATOCRIT 30.8 % (36.7-47.1); HEMOGLOBIN 9.9 g/dL (12.5-16.3); LYMPHOCYTES # (AUTO) 1.2 K/uL (0.8-4.8); LYMPHOCYTES % (AUTO) 22.8 % (20.5-51.5); MEAN CORPUSCULAR HGB CONC 32 g/dL (32.5-36.3); MEAN CORPUSCULAR VOLUME 84.1 fL (73.0-96.2); MONOCYTES # (AUTO) 0.6 K/uL (0.1-1.30); MONOCYTES % (AUTO) 10.4 % (0.0-11.0); NEUTROPHILS # (AUTO) 3.5 K/uL (1.8-8.9); NEUTROPHILS % (AUTO) 63.6 % (38.5-71.5); PLATELET COUNT (AUTO) 154 K/uL (152-348); RED BLOOD CELL COUNT(AUTO) 3.66 MIL/uL (4.06-5.63); RED CELL DISTRIBUTION WIDTH 17.6 % (12.1-16.2); WHITE BLOOD COUNT (AUTO) 5.4 K/uL (3.6-10.2)
[2024-07-08] MEDS ORDERED: MORPHINE SULFATE 2 MG/1 ML DISP.SYRIN ONE (10:17)
[2024-07-08] MEDS: MORPHINE SULFATE 2 MG/1 ML DISP.SYRIN IM ONE (10:22)
[2024-07-08] MEDS: diphenhydrAMINE 50 MG/1 ML VIAL IM ONE (10:22)
[2024-07-08 10:23] LABS: DIFFERENTIAL COMMENT 1
[2024-07-08 10:26] LABS: CALCIUM 9.2 mg/dL (8.5-10.1); CARBON DIOXIDE 29 mmol/L (21-32); CHLORIDE 101 mmol/L (98-107); CREATININE 3.3 mg/dL (0.6-1.3); GLUCOSE 233 mg/dL (74-106); POTASSIUM 4.4 mmol/L (3.5-5.1); SODIUM SERUM 139 mmol/L (136-145); UREA NITROGEN, BLOOD 43 mg/dL (7-18)
[2024-07-08 10:33] LABS: ALANINE AMINOTRANSFERASE 29 U/L (16-63); ALBUMIN 3.2 g/dL (3.4-5.0); ALKALINE PHOSPHATASE 117 U/L (50-136); ASPARTATE AMINOTRANSFERASE 23 U/L (15-37); BILIRUBIN,DIRECT 0.2 mg/dL (0.0-0.2); BILIRUBIN,TOTAL 0.4 mg/dL (0.2-1.0); LIPASE 82 U/L (16-77); TOTAL PROTEIN, SERUM 6.9 g/dL (6.4-8.2)
[2024-07-08] MEDS ORDERED: Medication Not On Formulary EA (Colchicine 0.6 MG) PO PRN (12:30)
[2024-07-08] MEDS ORDERED: DEXTROSE 50% 50 ML DISP.SYRIN IV PRN (12:30)
[2024-07-08] MEDS ORDERED: MAGNESIUM HYDROXIDE 30 ML LIQUID UDC PO PRN (12:30)
[2024-07-08] MEDS ORDERED: ALBUTEROL SULFATE 8 GM HFA.AER.AD IH PRN (12:30)
[2024-07-08] MEDS ORDERED: REMEDY ESSENTIAL ZINC PASTE 113 GM TP PRN (12:30)
[2024-07-08 12:43] LABS: *BILIRUBIN,URIN NEGATIVE (NEGATIVE); *BLOOD, URINE NEGATIVE (NEGATIVE); *CLARITY,URINE CLEAR (CLEAR); *COLOR,URINE YELLOW (YELLOW); *KETONES,URINE NEGATIVE (NEGATIVE); *PROTEIN,URINE 2+ (NEGATIVE); *UROBILINOGEN,URINE 0.2 E.U./dl (NORMAL); LEUKOCYTE ESTERASE ,URINE NEGATIVE (NEGATIVE); NITRITE, URINE NEGATIVE (NEGATIVE); UGLUCOSE NEGATIVE (NEGATIVE)
[2024-07-08 12:45] LABS: BACTERIA,URINE FEW /HPF (NONE SEEN); URINE AMORPHOUS URATE FEW /HPF; WBC,URINE 0-3 /HPF (0-3)
[2024-07-08] MEDS ORDERED: FOLI0.8T23 PO (13:49)
[2024-07-08] MEDS ORDERED: BUME1TAB8 PO ×2 (13:49)
[2024-07-08] MEDS ORDERED: DICY10CA13 PO (13:49)
[2024-07-08] MEDS ORDERED: PREG50CA PO (13:49)
[2024-07-08] MEDS ORDERED: MIRT7.5T10 PO (13:49)
[2024-07-08] MEDS ORDERED: ZINC1POW PO (13:49)
[2024-07-08] MEDS ORDERED: LABE300T2 PO ×3 (13:49)
[2024-07-08] MEDS ORDERED: DICYCLOMINE HCL 10 MG CAPSULE PO PRN (14:15)
[2024-07-08 15:02] VITALS: BP 179/89; TEMP 98.2; O2SAT 99
[2024-07-08] MEDS: LABETALOL HCL 200 MG TABLET PO SCH (15:40)
[2024-07-08] MEDS ORDERED: ALBUTEROL SULFATE 2.5 MG/3 ML NEBU NEB PRN (15:45)
[2024-07-08] MEDS: HYDROMORPHONE 2 MG/1 ML DISP.SYRIN IV PRN (15:50)
[2024-07-08] MEDS: KETOROLAC TROMETHAMINE 15 MG INJ IVP ONE (16:38)
[2024-07-08] MEDS: IV NS 1000 ML 1,000 ML IV PRN (16:40)
[2024-07-08] MEDS: BLOOD SUGAR DIAGNOSTIC 1 EACH STRIP VI SCH (16:45)
[2024-07-08] MEDS: APIXABAN 2.5 MG TABLET PO SCH (16:46)
[2024-07-08] MEDS: hydrALAZINE HCL 25 MG TABLET PO SCH (16:59)
[2024-07-08] MEDS ORDERED: PREGABALIN 50 MG CAPSULE PO SCH (17:00)
[2024-07-08] MEDS: ONDANSETRON 4 MG/2 ML VIAL IV PRN (17:08)
[2024-07-08 17:48] VITALS: BP 208/95; O2SAT 99
[2024-07-08] MEDS ORDERED: Medication Not On Formulary EA (Mirtazapine 7.5 MG) PO SCH (18:00)
[2024-07-08 18:36] VITALS: BP 198/84
[2024-07-08] MEDS: hydrALAZINE HCL 20 MG/1 ML VIAL IV ONE (18:42)
[2024-07-08] MEDS: ALLOPURINOL 100 MG TABLET PO SCH (18:43)
[2024-07-08] MEDS: LABETALOL HCL 100 MG TABLET PO SCH ×2 (18:43→20:40)
[2024-07-08 19:51] VITALS: BP 190/89; TEMP 97.6; O2SAT 96
[2024-07-08] MEDS: SENNOSIDES 1 TABLET PO PRN (20:41)
[2024-07-08] MEDS: MIRTAZAPINE 15 MG TABLET PO SCH (20:41)
[2024-07-08] MEDS: TAMSULOSIN HCL 0.4 MG CAP.SR.24H PO SCH (20:41)
[2024-07-08] MEDS: HEPARIN SODIUM,PORCINE 5,000 UNITS/ML VIAL SQ SCH (20:46)
[2024-07-08] MEDS: INSULIN REGULAR, HUMAN 1000 UNIT/10 ML VIAL SQ PRN (20:49)
[2024-07-08] MEDS ORDERED: hydrALAZINE HCL 20 MG/1 ML VIAL IV PRN (21:00)
[2024-07-08] MEDS: ASPIRIN 81 MG TAB.CHEW PO ONE (21:55)
[2024-07-08] MEDS: ACETAMINOPHEN 325 MG TABLET PO PRN (22:32)
[2024-07-08] MEDS: hydrALAZINE HCL 20 MG/1 ML VIAL IV PRN (22:33)
[2024-07-09] VITALS (10 sets, daily range): BP systolic 125–193; BP diastolic 45–78; TEMP 97.5–98.6; O2SAT 94–99
[2024-07-09 06:57] LABS: HEMOGLOBIN 10.2 g/dL (12.5-16.3); RED BLOOD CELL COUNT(AUTO) 3.81 MIL/uL (4.06-5.63); WHITE BLOOD COUNT (AUTO) 6.2 K/uL (3.6-10.2)
[2024-07-09 06:58] LABS: BASOPHILS # (AUTO) 0.1 K/UL (0.0-0.2); BASOPHILS % (AUTO) 0.9 % (0.0-2.0); EOSINOPHILS # (AUTO) 0.1 K/uL (0.0-0.7); EOSINOPHILS % (AUTO) 1.3 % (0.0-7.0); LYMPHOCYTES # (AUTO) 1.4 K/uL (0.8-4.8); LYMPHOCYTES % (AUTO) 21.7 % (20.5-51.5); MEAN CORPUSCULAR HEMOGLOBIN 26.8 uug (23.8-33.4); MEAN CORPUSCULAR HGB CONC 32 g/dL (32.5-36.3); MONOCYTES # (AUTO) 0.6 K/uL (0.1-1.30); NEUTROPHILS # (AUTO) 4.1 K/uL (1.8-8.9); NEUTROPHILS % (AUTO) 66.1 % (38.5-71.5); PLATELET COUNT (AUTO) 162 K/uL (152-348); RED CELL DISTRIBUTION WIDTH 17.5 % (12.1-16.2)
[2024-07-09 07:14] LABS: DIFFERENTIAL COMMENT 1
[2024-07-09 07:17] LABS: ALANINE AMINOTRANSFERASE 34 U/L (16-63); ALBUMIN 3.2 g/dL (3.4-5.0); ALKALINE PHOSPHATASE 117 U/L (50-136); ASPARTATE AMINOTRANSFERASE 28 U/L (15-37); BILIRUBIN,TOTAL 0.4 mg/dL (0.2-1.0); CALCIUM 9.5 mg/dL (8.5-10.1); CARBON DIOXIDE 27 mmol/L (21-32); CHLORIDE 103 mmol/L (98-107); CREATININE 3.3 mg/dL (0.6-1.3); GLUCOSE 184 mg/dL (74-106); MAGNESIUM 1.9 mg/dL (1.8-2.4); PHOSPHOROUS 3.9 mg/dL (2.5-4.9); POTASSIUM 4.9 mmol/L (3.5-5.1); SODIUM SERUM 139 mmol/L (136-145); TOTAL PROTEIN, SERUM 7.1 g/dL (6.4-8.2); UREA NITROGEN, BLOOD 44 mg/dL (7-18)
[2024-07-09] MEDS: FOLIC ACID/VITAMIN B COMP W-C TABLET PO SCH (08:38)
[2024-07-09] MEDS: MIRALAX 17 GM POWD.PACK PO SCH (08:38)
[2024-07-09] MEDS: FAMOTIDINE 20 MG TABLET PO SCH (08:39)
[2024-07-09] MEDS: LABETALOL HCL 200 MG TABLET PO SCH (08:39)
[2024-07-09] MEDS: FINASTERIDE 5 MG TABLET PO SCH (08:39)
[2024-07-09] MEDS ORDERED: Medication Not On Formulary EA (Polyethylene Glycol 3350 17 GM) PO SCH (09:00)
[2024-07-09] MEDS ORDERED: Medication Not On Formulary EA (Vit B Cmplx 3/Fa/Vit C/Biotin (Rena-Vite Rx Tablet) 1 EA PO SCH (09:00)
[2024-07-09] MEDS ORDERED: FOLIC ACID/VITAMIN B COMP W-C TABLET PO SCH (09:00)
[2024-07-09] MEDS ORDERED: ALLOPURINOL 100 MG TABLET PO SCH (09:00)
[2024-07-09] MEDS ORDERED: Medication Not On Formulary EA (Labetalol Hcl 400 MG) PO SCH (09:00)
[2024-07-09] MEDS: MORPHINE SULFATE 2 MG/1 ML DISP.SYRIN IV PRN (09:45)
[2024-07-09] MEDS ORDERED: COLCHICINE 0.6 MG TABLET PO PRN (16:45)
[2024-07-10] VITALS: BP 144/58; TEMP 97.8; O2SAT 95
[2024-07-10 04:00] VITALS: BP 149/72; TEMP 98.9; O2SAT 95
[2024-07-10 06:58] LABS: BASOPHILS % (AUTO) 0.7 % (0.0-2.0); EOSINOPHILS # (AUTO) 0.1 K/uL (0.0-0.7); EOSINOPHILS % (AUTO) 1.8 % (0.0-7.0); HEMATOCRIT 29.9 % (36.7-47.1); HEMOGLOBIN 9.6 g/dL (12.5-16.3); LYMPHOCYTES # (AUTO) 1.4 K/uL (0.8-4.8); LYMPHOCYTES % (AUTO) 21.8 % (20.5-51.5); MEAN CORPUSCULAR HEMOGLOBIN 27.1 uug (23.8-33.4); MEAN CORPUSCULAR HGB CONC 32 g/dL (32.5-36.3); MEAN CORPUSCULAR VOLUME 84.3 fL (73.0-96.2); MONOCYTES # (AUTO) 0.7 K/uL (0.1-1.30); MONOCYTES % (AUTO) 10.6 % (0.0-11.0); NEUTROPHILS # (AUTO) 4.3 K/uL (1.8-8.9); NEUTROPHILS % (AUTO) 65.1 % (38.5-71.5); PLATELET COUNT (AUTO) 150 K/uL (152-348); RED BLOOD CELL COUNT(AUTO) 3.55 MIL/uL (4.06-5.63); RED CELL DISTRIBUTION WIDTH 17.6 % (12.1-16.2); WHITE BLOOD COUNT (AUTO) 6.6 K/uL (3.6-10.2)
[2024-07-10 07:02] LABS: CALCIUM 9.2 mg/dL (8.5-10.1); CARBON DIOXIDE 27 mmol/L (21-32); CHLORIDE 105 mmol/L (98-107); CREATININE 3.6 mg/dL (0.6-1.3); GLUCOSE 166 mg/dL (74-106); POTASSIUM 4.8 mmol/L (3.5-5.1); SODIUM SERUM 141 mmol/L (136-145); UREA NITROGEN, BLOOD 54 mg/dL (7-18)
[2024-07-10 07:25] LABS: DIFFERENTIAL COMMENT 1
[2024-07-10 07:36] VITALS: BP 150/58; TEMP 98.6; O2SAT 99
[2024-07-10 11:11] VITALS: BP 143/58; TEMP 98.1; O2SAT 96
[2024-07-10 14:59] VITALS: BP 114/48; TEMP 98.6; O2SAT 97
[2024-07-10 19:20] VITALS: BP 166/82; TEMP 97.6; O2SAT 100
[2024-07-11 00:35] VITALS: BP 174/80; TEMP 98; O2SAT 100
[2024-07-11 05:09] VITALS: BP 160/56; TEMP 98.6; O2SAT 98
[2024-07-11 06:35] LABS: BASOPHILS # (AUTO) 0.1 K/UL (0.0-0.2); BASOPHILS % (AUTO) 1.1 % (0.0-2.0); DIFFERENTIAL COMMENT 0; EOSINOPHILS # (AUTO) 0.2 K/uL (0.0-0.7); EOSINOPHILS % (AUTO) 2.9 % (0.0-7.0); HEMATOCRIT 31.2 % (36.7-47.1); HEMOGLOBIN 10.1 g/dL (12.5-16.3); LYMPHOCYTES # (AUTO) 1.5 K/uL (0.8-4.8); LYMPHOCYTES % (AUTO) 27.6 % (20.5-51.5); MEAN CORPUSCULAR HEMOGLOBIN 27.2 uug (23.8-33.4); MEAN CORPUSCULAR HGB CONC 32 g/dL (32.5-36.3); MEAN CORPUSCULAR VOLUME 84.2 fL (73.0-96.2); MONOCYTES # (AUTO) 0.6 K/uL (0.1-1.30); MONOCYTES % (AUTO) 11.5 % (0.0-11.0); NEUTROPHILS % (AUTO) 56.9 % (38.5-71.5); PLATELET COUNT (AUTO) 161 K/uL (152-348); RED BLOOD CELL COUNT(AUTO) 3.71 MIL/uL (4.06-5.63); RED CELL DISTRIBUTION WIDTH 17.3 % (12.1-16.2); WHITE BLOOD COUNT (AUTO) 5.3 K/uL (3.6-10.2)
[2024-07-11 07:13] LABS: CALCIUM 9.1 mg/dL (8.5-10.1); CARBON DIOXIDE 25 mmol/L (21-32); CHLORIDE 103 mmol/L (98-107); CREATININE 3.3 mg/dL (0.6-1.3); GLUCOSE 110 mg/dL (74-106); POTASSIUM 4.5 mmol/L (3.5-5.1); SODIUM SERUM 139 mmol/L (136-145); UREA NITROGEN, BLOOD 50 mg/dL (7-18)
[2024-07-11] MEDS: MAGNESIUM HYDROXIDE 30 ML LIQUID UDC PO ONE (11:05)
[2024-07-11 11:43] VITALS: BP 127/70; TEMP 98.1; O2SAT 99
[2024-07-11 15:02] VITALS: BP 131/41; TEMP 97.9; O2SAT 98
[2024-07-11 19:10] VITALS: BP 141/65; TEMP 97.6; O2SAT 97
[2024-07-12 00:30] VITALS: BP 145/72; TEMP 97.6; O2SAT 100
[2024-07-12 05:39] VITALS: BP 163/57; TEMP 98.3; O2SAT 98
[2024-07-12 06:38] LABS: BASOPHILS % (AUTO) 0.9 % (0.0-2.0); EOSINOPHILS # (AUTO) 0.1 K/uL (0.0-0.7); EOSINOPHILS % (AUTO) 2.6 % (0.0-7.0); HEMATOCRIT 30.4 % (36.7-47.1); HEMOGLOBIN 9.9 g/dL (12.5-16.3); LYMPHOCYTES # (AUTO) 1.4 K/uL (0.8-4.8); LYMPHOCYTES % (AUTO) 25.3 % (20.5-51.5); MEAN CORPUSCULAR HEMOGLOBIN 27.4 uug (23.8-33.4); MEAN CORPUSCULAR HGB CONC 32 g/dL (32.5-36.3); MEAN CORPUSCULAR VOLUME 84.6 fL (73.0-96.2); MONOCYTES # (AUTO) 0.6 K/uL (0.1-1.30); MONOCYTES % (AUTO) 11.1 % (0.0-11.0); NEUTROPHILS # (AUTO) 3.4 K/uL (1.8-8.9); NEUTROPHILS % (AUTO) 60.1 % (38.5-71.5); PLATELET COUNT (AUTO) 157 K/uL (152-348); RED CELL DISTRIBUTION WIDTH 17.8 % (12.1-16.2); WHITE BLOOD COUNT (AUTO) 5.7 K/uL (3.6-10.2)
[2024-07-12 06:51] LABS: CALCIUM 9.1 mg/dL (8.5-10.1); CARBON DIOXIDE 26 mmol/L (21-32); CHLORIDE 105 mmol/L (98-107); CREATININE 3.4 mg/dL (0.6-1.3); GLUCOSE 108 mg/dL (74-106); POTASSIUM 4.5 mmol/L (3.5-5.1); SODIUM SERUM 139 mmol/L (136-145); UREA NITROGEN, BLOOD 49 mg/dL (7-18)
[2024-07-12 06:52] LABS: DIFFERENTIAL COMMENT 1
[2024-07-12 07:39] VITALS: BP 137/57; TEMP 98.4; O2SAT 100
[2024-07-12 11:17] VITALS: BP 127/41; TEMP 98.7; O2SAT 100
[2024-07-12 15:13] VITALS: BP 116/56; TEMP 98.5; O2SAT 97
[2024-07-12] MEDS ORDERED: BISACODYL 10 MG SUPP.RECT RC PRN (16:00)
[2024-07-12] MEDS: LACTULOSE 20 G/30 ML LIQUID UDC PO ONE (16:08)
[2024-07-12 19:10] VITALS: BP 167/74; TEMP 98.5; O2SAT 98
[2024-07-13 00:15] VITALS: BP 142/38; TEMP 98; O2SAT 99
[2024-07-13 05:20] VITALS: BP 157/47; TEMP 98.6; O2SAT 96
[2024-07-13 06:58] LABS: BASOPHILS % (AUTO) 0.8 % (0.0-2.0); EOSINOPHILS # (AUTO) 0.1 K/uL (0.0-0.7); EOSINOPHILS % (AUTO) 2.3 % (0.0-7.0); HEMATOCRIT 29.1 % (36.7-47.1); HEMOGLOBIN 9.3 g/dL (12.5-16.3); LYMPHOCYTES # (AUTO) 1.2 K/uL (0.8-4.8); LYMPHOCYTES % (AUTO) 23.8 % (20.5-51.5); MEAN CORPUSCULAR HEMOGLOBIN 27.1 uug (23.8-33.4); MEAN CORPUSCULAR HGB CONC 32 g/dL (32.5-36.3); MEAN CORPUSCULAR VOLUME 84.6 fL (73.0-96.2); MONOCYTES # (AUTO) 0.6 K/uL (0.1-1.30); MONOCYTES % (AUTO) 11.3 % (0.0-11.0); NEUTROPHILS # (AUTO) 3.2 K/uL (1.8-8.9); NEUTROPHILS % (AUTO) 61.8 % (38.5-71.5); PLATELET COUNT (AUTO) 151 K/uL (152-348); RED BLOOD CELL COUNT(AUTO) 3.43 MIL/uL (4.06-5.63); RED CELL DISTRIBUTION WIDTH 17.7 % (12.1-16.2); WHITE BLOOD COUNT (AUTO) 5.1 K/uL (3.6-10.2)
[2024-07-13 07:04] LABS: DIFFERENTIAL COMMENT 1
[2024-07-13 07:09] LABS: CALCIUM 8.7 mg/dL (8.5-10.1); CARBON DIOXIDE 24 mmol/L (21-32); CHLORIDE 107 mmol/L (98-107); CREATININE 3.1 mg/dL (0.6-1.3); GLUCOSE 77 mg/dL (74-106); POTASSIUM 4.5 mmol/L (3.5-5.1); SODIUM SERUM 141 mmol/L (136-145); UREA NITROGEN, BLOOD 43 mg/dL (7-18)
[2024-07-13 08:02] VITALS: BP 172/65; TEMP 98.1; O2SAT 100
[2024-07-13] MEDS ORDERED: POLYETHYLENE GLYCOL 3350 238 GM POWDER PO SCH (09:00)
[2024-07-13 11:44] VITALS: BP 160/67; TEMP 98; O2SAT 100
[2024-07-13] MEDS: MORPHINE SULFATE 2 MG/1 ML DISP.SYRIN IV PRN (13:32)
[2024-07-13 15:57] VITALS: BP 161/73; TEMP 97.9; O2SAT 98
[2024-07-13] MEDS: PREGABALIN 50 MG CAPSULE PO SCH (16:09)
[2024-07-13 20:28] VITALS: BP 153/70; TEMP 97.7; O2SAT 98
[2024-07-14 00:21] VITALS: BP 134/62; TEMP 98.1; O2SAT 98
[2024-07-14 04:10] VITALS: BP 118/60; TEMP 98; O2SAT 95
[2024-07-14 07:02] LABS: CARBON DIOXIDE 24 mmol/L (21-32); CHLORIDE 107 mmol/L (98-107); CREATININE 3.5 mg/dL (0.6-1.3); GLUCOSE 153 mg/dL (74-106); POTASSIUM 4.7 mmol/L (3.5-5.1); SODIUM SERUM 140 mmol/L (136-145); UREA NITROGEN, BLOOD 47 mg/dL (7-18)
[2024-07-14 07:51] VITALS: BP 188/97; TEMP 97.9; O2SAT 100
[2024-07-14 09:34] VITALS: BP 131/63; O2SAT 99
[2024-07-14 11:35] VITALS: BP 126/69; TEMP 98.7; O2SAT 98
[2024-07-14 12:07] VITALS: BP 126/69
[2024-07-14] MEDS ORDERED: MELA3TAB41 PO (13:39)
[2024-07-14] MEDS ORDERED: METH-807 PO (13:39)
[2024-07-14] MEDS ORDERED: METHOCARBAMOL 750 MG TABLET PO SCH (17:00)
[2024-07-14] MEDS ORDERED: MELATONIN 3 MG TABLET PO SCH (21:00)
== END 2024-07-14 15:15 | disposition home or self-care (01) | DRG 694 ==
LOC: ER 09:07 → MEDSURG3 14:15 → TELE3 17:53
PROVIDERS: ADMIT Nurse Practitioner Acute Care; ATTEND Nurse Practitioner Acute Care
PROC: 05HC33Z Insertion of Infusion Device into Left Basilic Vein, Percutaneous Approach (ICD-10-PCS; principal; 2024-07-12)
DX: N13.2 Hydronephrosis with renal and ureteral calculous obstruction (principal); E44.1 Mild protein-calorie malnutrition; I13.0 Hypertensive heart and chronic kidney disease with heart failure and stage 1 through stage 4 chronic kidney disease, or unspecified chronic kidney disease; Z53.8 Procedure and treatment not carried out for other reasons; I50.32 Chronic diastolic (congestive) heart failure; I48.20 Chronic atrial fibrillation, unspecified; N17.9 Acute kidney failure, unspecified; Z90.5 Acquired absence of kidney; I71.43 Infrarenal abdominal aortic aneurysm, without rupture; G25.81 Restless legs syndrome; J44.9 Chronic obstructive pulmonary disease, unspecified; N40.0 Benign prostatic hyperplasia without lower urinary tract symptoms; E78.5 Hyperlipidemia, unspecified; Z88.8 Allergy status to other drugs, medicaments and biological substances; Z91.041 Radiographic dye allergy status; Z95.0 Presence of cardiac pacemaker; Z79.4 Long term (current) use of insulin; Z79.01 Long term (current) use of anticoagulants; D63.1 Anemia in chronic kidney disease; E11.22 Type 2 diabetes mellitus with diabetic chronic kidney disease; E66.9 Obesity, unspecified; Z68.32 Body mass index [BMI] 32.0-32.9, adult; K59.00 Constipation, unspecified; K42.9 Umbilical hernia without obstruction or gangrene; K40.90 Unilateral inguinal hernia, without obstruction or gangrene, not specified as recurrent; E88.09 Other disorders of plasma-protein metabolism, not elsewhere classified; N18.4 Chronic kidney disease, stage 4 (severe); Z91.199 Patient's noncompliance with other medical treatment and regimen due to unspecified reason; M15.9 Polyosteoarthritis, unspecified; M54.32 Sciatica, left side
CPT/HCPCS: 36415; 70450; 71045; 83690; 83735; 84100; 84484; 85025; 85730; 87086; A4606; A4663; G0378; J0360; J1171; J1200; J1644; J1815; J2270; J2405; J7040; J8499